=== PATIENT | male | born 1985 | race Caucasian/White ===

== ENCOUNTER 2020-01-30 01:36 | Day surgery (SDC) | payer BC, SELFPAY ==
[2020-01-29 10:08] VITALS: BMI 19.8
[2020-01-30 06:51] VITALS: BP 135/95; PULSE 117; RESP 16; TEMP 36.3; O2SAT 100
[2020-01-30] MEDS: LACTATED RINGERS 1,000 ML 150 ML IV CONT (06:54)
--- NOTE | 2020-01-30 07:16 | WPDANESEPPF ---
Anes - Initial Pre Proc Eval Procedure: Operation Date: 01/30/20 08:00 Proposed Procedures p Flexible Sigmoidoscopy - Sarwat Hickey MD Date/Time: 01/30/20 07:16 Surgeon: Sarwat Hickey MD Pre Op Diagnosis: rectal pain Patient Data Age: 34 Gender: M Height: 5 ft 9 in Weight: 59 kg Last Vital Signs Temp 97.4 F L 01/30/20 06:51 Pulse 117 H 01/30/20 06:51 Resp 16 01/30/20 06:51 BP 135/95 H 01/30/20 06:51 Pulse Ox 100 01/30/20 06:51 Allergies Allergy/AdvReac Type Severity Reaction Status Date / Time No Known Allergies Allergy Verified 01/30/20 06:49 Home Medications Medication Instructions Recorded Confirmed Type No Home Medications 01/29/20 01/30/20 History Patient hx anesthesia problems: none Family hx anesthesia problems: none [facility] Past Medical History Medical History (Updated 01/29/20 @ 12:56 by Mane Barker MD) Healthy adult Social History Social History (Updated 01/30/20 @ 07:16 by Mane Barker MD) Smoking status: Never smoker Alcohol intake: never Anes - Eval Final PreProcedure Day of Procedure 01/30/20 07:16 Patient weight: normal Heart: regular rate and rhythm Lungs: clear to auscultation Airway: Mallampati scale class II Neurological: alert and oriented Last oral intake: >/= 8 hours ASA classification: I Emergent: no Anesthetic plan: proceed Anesthesia type and monitoring: general GIVS and standard monitoring Informed Consent: The patient's anesthetic plan and its attendant risks and benefits were discussed with the patient/family/POA. Questions were solicited and answers provided to the satisfaction of the patient/family/POA.
--- NOTE | 2020-01-30 07:48 | P.HP_ITS ---
History of Present Illness History of Present Illness Consent: Risks, benefits, and alternatives have been discussed and questions answered. Patient agrees to proceed with procedure. Chief complaint: rectal pain Narrative: Charles Kelly is a 34 year old W male reffered for flex sig secondary to a several week hx of rectal pain pressure associated with mucous but no blood. No family history of inflammatory bowel disease. No recent travel. No diarrhea. [facility] Past Medical History Medical History Healthy adult Social History Social History Smoking status: Never smoker Alcohol intake: never Meds Home Medications and Allergies Home Medications Medication Instructions Recorded Confirmed Type No Home Medications 01/29/20 01/30/20 History Allergies Allergy/AdvReac Type Severity Reaction Status Date / Time No Known Allergies Allergy Verified 01/30/20 06:49 Vital Signs Vital Signs - 24 hr 01/30/20 06:51 Temperature 36.3 C L Pulse Rate 117 H Respiratory Rate 16 Blood Pressure 135/95 H Pulse Oximetry 100 Exam Const: Orientation/consciousness: patient oriented x3 Resp: Auscultation: clear to auscultation bilaterally Cardio: Rate: regular rate Rhythm: regular rhythm Heart sounds: no murmurs GI: GI Palp: Yes Soft to palpation, No Tenderness to palpation present (GI), Yes No hepatosplenomegaly present and No Palpable mass present Auscultation: normal bowel sounds Neuro: General: patient oriented x3 and no focal motor deficits Extrem: General: no pedal edema Assessment and Plan Additional Plan Flexible sigmoidoscopy for evaluation of rectal pain.
[2020-01-30 08:05] VITALS: BP 94/58; PULSE 78; RESP 18; O2SAT 98
[2020-01-30 08:15] VITALS: BP 91/56; PULSE 74; RESP 16; O2SAT 98
[2020-01-30 08:25] VITALS: BP 98/61; PULSE 68; RESP 16; O2SAT 98
[2020-01-30 08:35] VITALS: BP 106/72; PULSE 73; RESP 18; O2SAT 99
== END 2020-01-30 09:00 | disposition home or self-care (01) ==
PROVIDERS: PCP Internal Medicine; Visit Provider Internal Medicine Gastroenterology
PROC: 0DJD8ZZ Inspection of Lower Intestinal Tract, Via Natural or Artificial Opening Endoscopic (ICD-10-PCS; CPT 45330; principal; 2020-01-30 08:00)
DX: K60.2 Anal fissure, unspecified (principal)
CPT/HCPCS: 45330; J2704; J7120

== ENCOUNTER 2020-08-11 12:36 | Emergency (ER) | payer OTHER, SELFPAY ==
[2020-08-11] VITALS (12 sets, daily range): BP systolic 125–153; BP diastolic 84–97; PULSE 74–104; RESP 12–20; TEMP 36.6–36.9; O2SAT 97–100
--- NOTE | 2020-08-11 13:06 | ECG_ITS ---
Measurements Intervals [place] Rate: 113 P: 87 LA: 134 QRS: 96 QRSD: 89 T: 10 QT: 326 QTc: 448 Interpretive Statements SINUS TACHYCARDIA POSSIBLE LEFT ATRIAL ENLARGEMENT RIGHT AXIS DEVIATION DELAYED PRECORDIAL R/S TRANSITION NONSPECIFIC ST & T-WAVE ABNORMALITY- INFERIOR LEADS BASELINE ARTIFACT- I, II, III, AVR, AVL, V1 ABNORMAL ECG Electronically Signed On 08-11-2020 14:03:32 CDT by Octaviano Hernandez D.O.
--- NOTE | 2020-08-11 13:42 | ED.ABDPAIN ---
HPI - Abdominal Pain General Chief Complaint: Abdominal Pain Stated Complaint: abdominal pain, anxiety, unable to sleep Time Seen by Provider: 08/11/20 13:38 Source: patient Mode of arrival: ambulatory Limitations: no limitations History of Present Illness HPI narrative: Patient is a 35-year-old male who presents abdominal discomfort that began abdominal discomfort that began this morning has had history of IBS and has recently seen GI for this his symptoms have been present on and off for months patient on arrival to emergency is in no distress and notes that his symptoms have resolved patient denies any fever vomiting diarrhea rectal bleeding or melena. Patient notes that the symptoms have been consistent with his past episodes which have been diagnosed as irritable bowel syndrome patient notes that he has had increasing anxiety as well and when the symptoms began his heart began to race patient on arrival to emergency department is in the room in no distress resting comfortably Related Data Home Medications Medication Instructions Recorded Confirmed No Home Medications 01/29/20 01/30/20 Allergies Allergy/AdvReac Type Severity Reaction Status Date / Time No Known Allergies Allergy Verified 01/30/20 06:49 Review of Systems Review of Systems: All systems reviewed & are unremarkable except as noted in HPI and below PMFSH Past Medical History Medical History (Updated 08/11/20 @ 14:50 by Rudi Ortiz PA-C) Anxiety Healthy adult IBS (irritable bowel syndrome) Social History Social History Smoking status: Never smoker Alcohol intake: never Exam Narrative: Exam Narrative: GENERAL: Well-appearing, well-nourished, and in no acute distress. HEAD: Normocephalic, atraumatic. EYES: PERRLA and EOMI. ENT: Nares clear, no rhinorrhea or epistaxis. Mucous membranes moist. CHEST: Clear to auscultation. No respiratory distress. No wheezes rales or rhonchi HEART: Regular rate and rhythm. No murmur heard. Normal peripheral pulses. ABDOMEN: Soft, nontender, nondistended EXTREMITIES: Normal range of motion. No edema. SKIN: Warm, dry, no rash. NEURO: No focal deficits. Alert and oriented x3. PSYCH: Normal mood and affect. Course Course Emergency Course: Patient in the room asymptomatic at this time symptoms seem consistent with anxiety and continued GI symptoms patient will be referred back to gastroenterology and primary care for further evaluation of his symptoms Vital Signs Vital signs: Vital Signs Temperature 97.8 F 08/11/20 13:02 Pulse Rate 104 H 08/11/20 13:02 Respiratory Rate 16 08/11/20 13:02 Blood Pressure 128/84 08/11/20 13:02 Pulse Oximetry 99 08/11/20 13:02 Temperature 97.8 F 08/11/20 13:02 Pulse Rate 104 H 08/11/20 13:02 Respiratory Rate 16 08/11/20 13:02 Blood Pressure 128/84 08/11/20 13:02 Pulse Oximetry 99 08/11/20 13:02 MDM - Abdominal Pain MDM Narrative Medical decision making narrative: Patient in the room in no distress aware of case findings treatment plan and diagnosis agreeing to follow-up as directed or to return if symptoms worsen felt appropriate for outpatient reevaluation patient with nontender abdominal exam no high risk changes in the urinalysis felt that unlikely is a kidney stone patient can continue to be treated outpatient provided with reasons to return Discharge Plan Discharge Clinical Impression: Abdominal pain Patient Disposition: Home, Self-Care Condition: Stable Instructions: Antibiotic Form, Abdominal Pain (ED) Additional Instructions: Follow up with your primary care doctor and transition specialist tommorrow to set up for reevaluation. Go to ER for worsening pain, nausea/vomitting, fever/chills, penile discharge, chest pain, shortness of breath, blood in stools or urine, etc. or any other concerns. Stay well-hydrated Take any prescribed medications as directed.
[2020-08-11 14:38] LABS: Appearance Urine Clear (Clear); Color Urine Colorless (Yellow)
[2020-08-11 14:39] LABS: Add Urine Microscopic? NO; Bilirubin Urine Negative (Negative); Blood Urine Negative (Negative); Glucose Urine UA Negative (Negative); Ketones Urine Negative (Negative); Leukocyte Esterase Ur Negative LEU/UL (Negative); Nitrate Urine Negative (Negative); Protein Urine Negative (Negative); Urobilinogen Urine Negative mg/dL (<2.0)
[2020-08-11 14:40] LABS: Specific Grav Ur 1.003 (1.001-1.035)
== END 2020-08-11 15:10 | disposition home or self-care (01) ==
PROVIDERS: Emergency Medicine Emergency Medical Services; Emergency Provider Emergency Medicine; PCP Internal Medicine
DX: R10.9 Unspecified abdominal pain (principal); K58.9 Irritable bowel syndrome, unspecified; R00.0 Tachycardia, unspecified; R94.31 Abnormal electrocardiogram [ECG] [EKG]
CPT/HCPCS: 81003; 93005; 99283